=== PATIENT | female | born 2000 | race Two or more races ===

== ENCOUNTER 2021-08-06 13:37 | Emergency (ER) | payer OTHER, SELFPAY | END 2021-08-06 14:26 | disposition home or self-care (01) | LOC: CSHERS 13:37 | DX: K03.81 Cracked tooth (principal); R05.9 Cough, unspecified | CPT/HCPCS: 99283 ==

== ENCOUNTER 2022-12-31 17:25 | Emergency (ER) | payer MEDICAID, SELFPAY ==
[2022-12-31 18:12] LABS: Bilirubin Neg (Negative); Blood, Urine Negative (Negative); Clarity Clear (Clear); Glucose, Urine (Dipstick) Normal (Negative); Ketone, Urine Negative (Negative); Leukocyte Negative (Negative); Nitrite Negative (Negative); Protein, Urine (Dipstick) 15 mg/dl (Neg-Trace); Specific Gravity, Urine 1.005 (1.005-1.030); Urobilinogen Normal mg/dL (Less than 2)
[2022-12-31 18:15] LABS: Pregnancy Test - Urine (BHCG) Negative (Negative); Pregu Control Background? CLEAR/WHITE (CLR/WHITE); Pregu Control Bar Appear? YES (CONTROL BAR); Specific Gravity 1.005 (1.002-1.036)
[2022-12-31 18:26] LABS: Bacteria/HPF Rare-Few HPF (None Seen); CAUTI Indications for Culture Dysuria,urgency,freq; RBC/HPF None Seen HPF (0-3); Squamous Epithelial 0-3 HPF (0-3); WBC/HPF 0-3 HPF (0-3)
[2022-12-31 18:27] LABS: Urine Culture Reflex No No
[2022-12-31 18:34] LABS: Amphetamine Not Detected (NotDetected); Barbiturates Screen Not Detected (NotDetected); Benzodiazepine Screen Not Detected (NotDetected); Cocaine Metabolite Screen Not Detected (NotDetected); Methadone Not Detected (NotDetected); Methamphetamine Not Detected (NotDetected); Opiate Screen Not Detected (NotDetected); Oxycodone Screen Not Detected (NotDetected); Phencyclidine (PCP) Not Detected (NotDetected); THC/Cannabinoid Screen Detected (NotDetected); Tricyclic Screen Not Detected (NotDetected)
[2022-12-31 18:35] LABS: ALT (SGPT) 11 U/L (8-55); AST (SGOT) 13 U/L (5-34); Albumin 4.4 g/dL (3.5-5.0); Alkaline Phosphatase 64 U/L (40-110); Anion Gap 13 mmol/L (10-20); BUN (Urea Nitrogen) 7 mg/dL (7.0-18.7); Bilirubin, Total 0.3 mg/dL (0.2-1.2); Calc. Creatinine Clearance 0 mL/min (70-130); Calcium 9.4 mg/dL (7.8-10.44); Carbon Dioxide 26 mmol/L (22-29); Chloride 105 mmol/L (98-107); Estimated GFR 101; Globulin 2.9 g/dL (2.4-3.5); Glucose 66 mg/dL (70-105); Lipase 19 U/L (8-78); Potassium 3.6 mmol/L (3.5-5.1); Protein, Total 7.3 g/dL (6.0-8.3); Sodium 140 mmol/L (136-145)
[2022-12-31 18:36] LABS: #Basophils 0.1 10x3/uL (0.0-0.2); #Eosinphils 0.2 10x3/uL (0.0-0.5); #Monocytes 0.8 10x3/uL (0.0-1.1); #Neutrophils 4.6 10x3/uL (1.5-8.4); %Basophils 1.2 % (0.0-2.0); %Eosinophils 1.9 % (0.0-6.0); %Monocytes 8.8 % (0.0-10.0); %Neutrophils 53.5 % (40.0-75.0); Hematocrit 36.3 % (34.9-44.5); Hemoglobin 12.4 g/dL (12.0-15.5); Mean Corpuscular HGB CONC 34.2 g/dL (32.0-36.0); Mean Corpuscular Hemoglobin 30.5 pg (27.0-33.0); Mean Corpuscular Volume 89.4 fl (81.6-98.3); Mean Platelet Volume 10.8 fl (7.4-10.4); Platelet Count 389 10x3/uL (150-450); RBC Distribution Width 13.5 % (11.5-14.5); Red Blood Cell (RBC) Count 4.06 10x6/uL (3.90-5.03); White Blood Cell (WBC) Count 8.6 10x3/uL (3.5-10.5)
[2022-12-31] MEDS ORDERED: Ondansetron ODT 4 MG TAB ONE (18:45)
== END 2022-12-31 19:10 | disposition home or self-care (01) ==
LOC: CSHERS 17:25
DX: R11.2 Nausea with vomiting, unspecified (principal); F12.90 Cannabis use, unspecified, uncomplicated; F17.200 Nicotine dependence, unspecified, uncomplicated
CPT/HCPCS: 80053; 80306; 81001; 81025; 83690; 85025; 99284; Q0162

== ENCOUNTER 2024-09-10 14:23 | Emergency (ER) | payer OTHER, MEDICAID | END 2024-09-10 15:06 | disposition home or self-care (01) | LOC: CSHERS 14:23 | DX: O99.891 Other specified diseases and conditions complicating pregnancy (principal); H60.91 Unspecified otitis externa, right ear; O99.331 Smoking (tobacco) complicating pregnancy, first trimester; F17.200 Nicotine dependence, unspecified, uncomplicated; Z3A.10 10 weeks gestation of pregnancy | CPT/HCPCS: 99282 ==

== ENCOUNTER 2024-12-10 12:22 | Day surgery (SDC) | payer OTHER ==
[2024-12-10 13:03] VITALS: BMI 30.4
[2024-12-10] MEDS ORDERED: hydrALAZINE 20 MG/ML VIAL SLOW IVP PRN (14:08)
== END 2024-12-10 16:38 | disposition home or self-care (01) ==
LOC: CSHLD/OP 12:22
PROVIDERS: ATTEND Family Medicine
DX: O99.891 Other specified diseases and conditions complicating pregnancy (principal); R10.9 Unspecified abdominal pain; Z3A.24 24 weeks gestation of pregnancy; Z67.40 Type O blood, Rh positive; Z91.048 Other nonmedicinal substance allergy status; Z79.899 Other long term (current) drug therapy; V43.62XA Car passenger injured in collision with other type car in traffic accident, initial encounter
CPT/HCPCS: 99283

== ENCOUNTER 2025-02-04 00:48 | Day surgery (SDC) | payer OTHER ==
[2025-02-04 00:52] VITALS: BMI 36.3
[2025-02-04] MEDS ORDERED: hydrALAZINE 20 MG/ML VIAL SLOW IVP PRN (00:57)
== END 2025-02-04 02:35 | disposition home or self-care (01) ==
LOC: CSHLD/OP 00:48
PROVIDERS: ATTEND Family Medicine
DX: O36.8130 Decreased fetal movements, third trimester, not applicable or unspecified (principal); Z3A.32 32 weeks gestation of pregnancy; Z91.048 Other nonmedicinal substance allergy status
CPT/HCPCS: 76819